=== PATIENT | male | born 1990 | race Caucasian/White ===

== ENCOUNTER 2020-07-09 13:20 | Day surgery (SDC) | payer OTHER ==
[~2020-07-09 13:20] MED LIST: CELECOXIB 200 MG CAP PO NR; GABAPENTIN 300 MG CAP PO NR; LACTATED RINGERS 1,000 ML IV SCH; MAGNESIUM OXIDE 400 MG TAB PO SCH; MIDAZOLAM 2 MG/2 ML INJ IV NR; ceFAZolin/STERILE WATER 2 GM/20 ML SYRINGE IV NR; fentaNYL 100 MCG/2 ML INJ IV PRN
[2020-07-09] MEDS ORDERED: BUPIVACAINE-EPINEPHRINE/PF 0.25%-1:200,000 (30 ML) VIAL INFILTRATI ONE (14:39)
[2020-07-09] MEDS ORDERED: LIDOCAINE (1%) 10 MG/1 ML VIAL 20 ML MDV ONE (14:41)
--- NOTE | 2020-07-09 14:59 | Anesthesia Consultation ---
Anesthesia Consult and Med Hx Date of service: 07/09/20 - Airway Anesthetic Teeth Evaluation: Good ROM Head & Neck: Adequate Mental/Hyoid Distance: Adequate Mallampati Class: Class II Intubation Access Assessment: Probably Good - Pulmonary Exam CTA: Yes - Cardiac Exam Cardiac Exam: RRR - Pre-Operative Health Status ASA Pre-Surgery Classification: ASA1 Proposed Anesthetic Plan: General Nerve Block: Supraclavicular - Pulmonary Hx Smoking: No Hx Respiratory Symptoms: No Hx Sleep Apnea: No (EMILI PRE SCREEN LOW RISK) - Cardiovascular System Hx Hypertension: No - Central Nervous System CVA: No - Gastrointestinal Hx Gastroesophageal Reflux Disease: No - Endocrine Hx Renal Disease: No Hx Liver Disease: No Hx Insulin Dependent Diabetes: No Hx Non-Insulin Dependent Diabetes: No Hx Thyroid Disease: No - Other Systems Hx Obesity: No
--- NOTE | 2020-07-09 15:00 | Anesthesia Day of Surgery ---
Anesthesia Day of Surgery - Day of Surgery Patient Examined: Yes Patient H&P Reviewed: Yes Patient is NPO: Yes
[2020-07-09] MEDS ORDERED: HYDROmorphone 1 MG/1 ML INJ ONE (15:52)
[2020-07-09] MEDS ORDERED: propofoL 200 MG/20 ML VIAL IV ONE (15:52)
[2020-07-09] MEDS ORDERED: ONDANSETRON 4 MG/2 ML INJ ONE (17:35)
[2020-07-09] MEDS ORDERED: LIDOCAINE MPF (2%) 20 MG/1 ML VIAL 5 ML ONE (17:35)
--- NOTE | 2020-07-09 17:42 | Procedure Note ---
Date of procedure: 07/09/20 Pre-op diagnosis: Displaced left distal third ulnar and radius fracture Post-op diagnosis: same Procedure: Open reduction internal fixation left ulnar and radius Procedure The patient was brought to the OR after being given a scalene nerve block for postop pain management. He was placed on the OR table in a supine position following induction with mask anesthesia the patient's left upper extremity was prepped and draped in the usual sterile manner. A timeout procedure was done to identify the patient and the correct operative site. The arm was exsanguinated followed by inflation of the pneumatic tourniquet to 250 mmHg. A midline volar incision was made over the mid forearm this was taken down sharply through skin and subcutaneous the digit radius fracture was approached first using the flexor carpi radialis tendon as a landmark the incision was carried just medial to this structure down through the muscle the proximal fragment was seen and identified as well as the distal fragment using 2 bone clamps the radius fractures were manipulated into a reduced position next a 7-hole locked plate was applied with screws of various lengths next the ulnar fracture was approached after a muscle- splitting the fracture fragments were identified and again using the reduction clamps the ulnar fragments were manipulated and reduced and held with a 6-hole locking plate again screws of various lengths were applied C-arm fluoroscopy was then used to evaluate the reduction and placement of the hardware. The wound was then copiously irrigated and was closed in a standard routine fashion patient tolerated procedure and there were no complications Anesthesia: MAC, regional Surgeon: GUSTAVO QUINTERO Pressure Dispatcher: NORMA MELTON Estimated blood loss: minimal Pathology: none Condition: stable Disposition: PACU
--- NOTE | 2020-07-09 18:28 | Post Anesthesia Evaluation ---
- Post Anesthesia Evaluation Patient Participated: Yes Airway Patent: Yes Stable Respiratory Function: Yes Nausea/Vomiting: No Temp > 96.8F: Yes Pain Manageable: Yes Adequeate Hydration: Yes Anesthesia Complications: No
--- NOTE | 2020-07-09 19:00 | XRay Report ---
Left wrist 2 views INDICATION: Left wrist pain IMPRESSION: Satisfactory appearance of the distal forearm following ORIF. Fluoroscopy time: 10 seconds. Fluoroscopic images: 2 views. Signer Name: George Escobar MD Signed: 07/09/2020 6:56 PM Workstation Name: [id number]
[2020-07-09 20:24] VITALS: BP 115/62
== END 2020-07-09 13:21 | disposition home or self-care (01) ==
LOC: OR 13:20
PROVIDERS: ATTEND Orthopaedic Surgery
DX: S52.502A Unspecified fracture of the lower end of left radius, initial encounter for closed fracture (principal); S52.602A Unspecified fracture of lower end of left ulna, initial encounter for closed fracture; Z79.899 Other long term (current) drug therapy; X58.XXXA Exposure to other specified factors, initial encounter; Y93.89 Activity, other specified; Y92.89 Other specified places as the place of occurrence of the external cause
CPT/HCPCS: 25607; 25652; 64415; 73100; C1713; J0690; J1170; J2250; J2405; J2704; J3010; J7120